=== PATIENT | female | born 1965 | race Caucasian/White ===

== ENCOUNTER 2020-01-14 12:10 | Emergency (ER) | payer MEDICARE ==
[~2020-01-14] VITALS: Ht 157.5 cm; Wt 52.3 kg
[2020-01-14 12:52] VITALS: BP 142/82
--- NOTE | 2020-01-14 13:49 | PHYS DOC ---
Past Medical History Past Medical History: No Pertinent History Past Surgical History: No Surgical History Smoking Status: Current Every Day Smoker Alcohol Use: Occasionally General Adult EDM: Chief Complaint: BACK PAIN OR INJURY HPI: HPI: Patient is a 54 year old female who presents to the emergency department with complaints of low back pain for the last 2 to 3 months without any known injury. Patient reports that since she woke up this morning the pain in her right low back has increased. She denies any alleviating or exacerbating factors. She denies any saddle anesthesia or loss of bowel/bladder control. The patient denies any dysuria, hematuria, or increased urinary frequency. She currently rates her pain a 7 out of 10 on the pain scale, she denies any alleviating or exacerbating factors. She states that the pain is constant. Review of Systems: Review of Systems: Constitutional: Denies fever or chills. [] Respiratory: Denies cough or shortness of breath. [] Cardiovascular: Denies chest pain or edema. [] GI: Denies abdominal pain, nausea, vomiting, or diarrhea. [] : Denies dysuria. [] Musculoskeletal: See HPI Integument: Denies rash. [] Neurologic: Denies headache, focal weakness or sensory changes. [] Psychiatric: Denies depression or anxiety. [] Heart Score: Risk Factors: Risk Factors: DM, Current or recent (<one month) smoker, HTN, HLP, family history of CAD, obesity. Risk Scores: Score 0 - 3: 2.5% MACE over next 6 weeks - Discharge Home Score 4 - 6: 20.3% MACE over next 6 weeks - Admit for Clinical Observation Score 7 - 10: 72.7% MACE over next 6 weeks - Early Invasive Strategies Allergies: Allergies: Allergies Coded Allergies Type Severity Reaction Last Updated Verified Penicillins Allergy Unknown 01/14/20 Yes Sulfa (Sulfonamide Antibiotics) Allergy Unknown 01/14/20 Yes Physical Exam: PE: Constitutional: Well developed, well nourished, no acute distress, non-toxic appearance. [] HENT: Normocephalic, atraumatic, bilateral external ears normal, nose normal. [] Eyes: PERRLA, EOMI, conjunctiva normal, no discharge. [] Neck: Normal range of motion, no stridor. [] Cardiovascular:Heart rate regular rhythm Lungs & Thorax: Respirations even and unlabored, no retractions, no respiratory distress Abdomen: soft, no tenderness Skin: Warm, dry, no erythema, no rash. [] Back: No bony tenderness; right lumbar paraspinal tenderness to palpation, negative straight leg lift Extremities: No cyanosis, ROM intact, no edema. [] Neurologic: Alert and oriented X 3, normal motor function, normal sensory function, no focal deficits noted. [] Psychologic: Affect normal, judgement normal, mood normal. [] Current Patient Data: Vital Signs: Vital Signs Date Time Temp Pulse Resp B/P (MAP) Pulse Ox O2 Delivery O2 Flow Rate FiO2 01/14/20 12:52 98.9 73 16 142/82 (102) 96 Room Air 98.9 EKG: EKG: [] Radiology/Procedures: Radiology/Procedures: PROCEDURE: LUMBAR SPINE 2-3V EXAM: Lumbar spine, 3 views. HISTORY: Pain. COMPARISON: None. FINDINGS: 3 views of the lumbar spine are obtained. There is minimal grade 1 anterolisthesis of L4 on L5. There is mild endplate remodeling at multiple levels. There is facet arthropathy predominantly at L4-5 and L5-S1. IMPRESSION: 1. Degenerative change primarily at the lower lumbar levels. 2. Minimal grade 1 anterolisthesis of L4 on L5.[] Course & Med Decision Making: Course & Med Decision Making Pertinent Labs and Imaging studies reviewed. (See chart for details) Patient is a 54-year-old female who presented to the emergency department with complaints of low back pain for 2 to 3 months, that was worse this morning. Urinalysis is unremarkable. Lumbar x-ray revealed degenerative changes primarily at the lower lumbar levels, and minimal grade 1 anterior listhesis of L4 on L5 I advised her of her x-ray and urinalysis results. [] 1555-while at the bedside to discuss discharge plan with patient she requests and prescription for Diflucan. Patient states she has been on antibiotics that were prescribed at a different emergency room for treatment of an abscess. She states she has had vaginal itching that is consistent with previous yeast infections. Patient reports she typically gets yeast infections when she takes antibiotics, she denies any irregular vaginal discharge or odor. Prescriptions written for a Medrol Dosepak, naproxen, Diflucan, and Flexeril. Encouraged patient to follow-up with her primary care doctor for further evaluation of chronic back pain. Patient verbalized an understanding of home care, medications, follow-up, and return to ED instructions and was in agreement with the plan of care. Marybeth Disclaimer: Marybeth Disclaimer: This electronic medical record was generated, in whole or in part, using a voice recognition dictation system. Departure Departure Impression: Primary Impression: Low back pain without sciatica Qualified Codes: M54.5 - Low back pain Disposition: HOME, SELF-CARE Condition: STABLE Referrals: UNKNOWN PCP NAME (PCP) Patient Instructions: Back Pain, Adult, [id number] Additional Instructions: Fill the prescription(s) and use as directed. Apply heat or ice for to sore areas as needed for comfort. Activity as tolerated. Follow up with your primary care doctor this week if symptoms persist, return to the ER if symptoms worsen. Scripts Fluconazole (DIFLUCAN) 150 Mg Tablet 1 TAB PO ONCE, #1 TAB 1 Refill Prov: СЕРГЕЙ SOTO APRN 01/14/20 Naproxen (NAPROXEN) 500 Mg Tablet 1 TAB PO BID PRN for PAIN for 10 Days, #20 TAB 0 Refills Prov: СЕРГЕЙ SOTO APRN 01/14/20 Cyclobenzaprine Hcl (CYCLOBENZAPRINE HCL) 10 Mg Tablet 1 TAB PO TID PRN for PAIN, #30 TAB 0 Refills Prov: СЕРГЕЙ SOTO APRN 01/14/20 Methylprednisolone (MEDROL) 4 Mg Tab.ds.pk 1 PKG PO UD for 6 Days, #1 PKG 0 Refills Prov: СЕРГЕЙ SOTO APRN 01/14/20 Justicifation of Admission Dx: Justifications for Admission: Justification of Admission Dx: N/A СЕРГЕЙ SOTO APRN Jan 14, 2020 13:49
--- NOTE | 2020-01-14 14:10 | RAD ---
EXAM: Lumbar spine, 3 views. HISTORY: Pain. COMPARISON: None. FINDINGS: 3 views of the lumbar spine are obtained. There is minimal grade 1 anterolisthesis of L4 on L5. There is mild endplate remodeling at multiple levels. There is facet arthropathy predominantly at L4-5 and L5-S1. IMPRESSION: 1. Degenerative change primarily at the lower lumbar levels. 2. Minimal grade 1 anterolisthesis of L4 on L5. Electronically signed by: Zoë Adams MD (01/14/2020 2:07 PM) [id number]
[2020-01-14 14:24] LABS: BILIRUBIN,URINE NEGATIVE (NEG); CLARITY,URINE CLEAR; COLOR,URINE YELLOW; NITRITE,URINE NEGATIVE (NEG); PROTEIN,URINE NEGATIVE (NEG-TRACE); UROBILINOGEN,URINE 0.2 mg/dL (0.2 mg/dL)
[2020-01-14 14:41] LABS: BACTERIA,URINE 0 /HPF (0-FEW); RBC,URINE 0 /HPF (0-2); SQUAMOUS EPITHELIAL CELL,UR FEW /LPF; WBC,URINE 0 /HPF (0-4)
[2020-01-14] MEDS ORDERED: CYCL10TA2 PO (14:51)
[2020-01-14] MEDS ORDERED: METH4TAB2 PO (14:51)
[2020-01-14] MEDS ORDERED: NAPR-514 PO (14:51)
[2020-01-14] MEDS ORDERED: FLUC150T PO (15:01)
== END 2020-01-14 14:58 | disposition home or self-care (01) ==
LOC: ER 12:10
DX: M54.5 Low back pain (principal); F17.200 Nicotine dependence, unspecified, uncomplicated; Z88.0 Allergy status to penicillin; Z88.2 Allergy status to sulfonamides
CPT/HCPCS: 72100; 81001; 99284